=== PATIENT | female | born 1955 | race Caucasian/White ===

== ENCOUNTER 2019-01-10 10:21 | Observation (INO) | payer OTHER ==
[2019-01-10] MEDS ORDERED: Zofran 4 MG/2 ML VIAL IV ONE (11:02)
[2019-01-10] MEDS ORDERED: Sodium Chloride 0.9% 1000 ML 1,000 ML IV STA (11:02)
[2019-01-10] MEDS ORDERED: APRESOLINE 20 MG/ML INJ IV ONE (11:07)
[2019-01-10] MEDS ORDERED: Zofran 4 MG/2 ML VIAL ONE (11:28)
[2019-01-10] MEDS ORDERED: Sodium Chloride 0.9% 1000 ML 1,000 ML ONE (11:28)
[2019-01-10] MEDS ORDERED: APRESOLINE 20 MG/ML INJ ONE (11:28)
[2019-01-10 11:49] LABS: BASOPHIL % 0.4 % (0.0-0.4); Basophil (Absolute #) 0.03 (0-0.4); Eosinophil % 0.6 % (0.00-5.0); Eosinophil (Absolute #) 0.05 (0-0.5); Granulocyte Absolute (ANC) 7.22 (1.4-6.9); Granulocytes % 87.3 % (36.0-66.0); Hematocrit 40.3 % (35-47); Hemoglobin 13.8 gm/dl (12.0-16.0); Lymphocyte (Absolute #) 0.66 (1.0-4.6); Mean Cell Volume 84.3 fl (78-100); Mean Corpuscular Hemoglobin 28.9 pg (26-32); Mean Corpuscular Hgb Concent. 34.2 g/dl (32-36); Mean Platelet Volume 11.4 fl (6-9.5); Monocyte (Absolute #) 0.31 (0.0-1.3); Monocytes % 3.7 % (0.0-12.0); Platelet Count 176 K/mm3 (150-450); Red Blood Count 4.78 M/mm3 (4.1-5.4); White Blood Count 8.3 K/mm3 (4.0-10.5)
[2019-01-10 11:53] LABS: Appearance CLEAR (CLEAR); Bilirubin NEGATIVE (NEGATIVE); Blood SMALL Ery/ul (0-5); Glucose >=500 mg/dL (NEGATIVE); Ketones SMALL (NEGATIVE); Leukocyte Esterase NEGATIVE (NEGATIVE); Nitrite NEGATIVE (NEGATIVE); Protein,Urine Dip 100 (Negative); RBC 0-2 /HPF (0-2); Specific Gravity 1.014 (1.005-1.025); Urobilinogen 4 mg/dL (0-1); WBC 0-2 /HPF (0-5)
[2019-01-10 12:00] LABS: ALBUMIN 4.3 g/dL (3.5-5.0); ALKALINE PHOSPHATASE 91 U/L (38-126); ANION GAP 16.2 MEQ/L (5-15); BLOOD UREA NITROGEN 14 mg/dL (7-17); CHLORIDE 104 mmol/L (98-107); Calcium 10.2 mg/dL (8.4-10.2); Carbon Dioxide 22 mmol/L (22-30); Creatinine 1 0.47 mg/dL (0.52-1.04); Glucose 235 mg/dL (74-106); LIPASE 148 U/L (23-300); SGOT/AST 26 U/L (14-36); SGPT/ALT 29 U/L (0-35); SODIUM 138 mmol/L (137-145); Total Protein 7.2 g/dL (6.3-8.2)
[2019-01-10] MEDS: Cozaar 50 MG PO ONE ×2 (14:04→14:05)
--- NOTE | 2019-01-10 14:20 | ERPHSYRPT ---
- History of Present Illness Source: patient Exam Limitations: no limitations Patient Subjective Stated Complaint: woke up feeling nauseas and has vomited 3 times today, feels weak and not well Triage Nursing Assessment: bowel sounds heard in all 4 quadrants, hypertensive, pale, dry, no edema, pulses good, pain in head and left neck Physician History: Pt is a 63 y/o female that presented to the ED secondary to three episodes of vomiting. Pt denies F/C/S. No abdominal pain or diarrhea. Pt denies SOB or cough. Pt states, she takes her BP meds as ordered. Timing/Duration: today Activities at Onset: none Severity of Pain-Max: none Severity of Pain-Current: none Modifying Factors: Improves With: nothing Nitro Today/Relief: no nitro taken today Aspirin Treatment Today: no aspirin today Associated Symptoms: nausea, vomiting Allergies/Adverse Reactions: hydromorphone HCl [From Dilaudid] Allergy (Severe, Verified 01/10/19 10:47) CAN'T BREATHE Home Medications: Metformin HCl 500 mg [Glucophage 500 MG] 500 mg PO BID 03/04/12 [History] Aspirin EC 81 mg [Ecotrin 81 mg] 81 mg PO DAILY 08/24/13 [History] Enalapril Maleate 10 mg [Vasotec 10 MG] 10 mg PO DAILY 03/10/16 [History] Verapamil HCl [Verapamil ER] 240 mg PO DAILY 01/10/19 [History] Hx Tetanus, Diphtheria Vaccination/Date Given: Yes Hx Influenza Vaccination/Date Given: Yes Hx Pneumococcal Vaccination/Date Given: Yes - Review of Systems Constitutional: Lethargy, No Fever, No Chills Eyes: No Symptoms Ears, Nose, & Throat: No Symptoms Respiratory: No Cough, No Dyspnea Cardiac: No Chest Pain, No Edema, No Syncope Abdominal/Gastrointestinal: Nausea, Vomiting, No Abdominal Pain, No Diarrhea Musculoskeletal: No Back Pain, No Neck Pain Neurological: No Dizziness, No Focal Weakness, No Sensory Changes - Past Medical History Pertinent Past Medical History: Yes Neurological History: Seizures Cardiac History: Hypertension Respiratory History: Other Endocrine Medical History: Diabetes Type II Musculoskeletal History: Degenerative Disk Disease, Osteoarthritis GI Medical History: GERD History: No Pertinent History Psycho-Social History: No Pertinent History Female Reproductive Disorders: No Pertinent History Other Medical History: decreased o2 sat during night time, pt on 3l o2 per nc at night - Past Surgical History Past Surgical History: Yes Neuro Surgical History: No Pertinent History Cardiac: No Pertinent History Respiratory: No Pertinent History Gastrointestinal: Cholecystectomy Genitourinary: No Pertinent History Musculoskeletal: Orthopedic Surgery Female Surgical History: Section, Tubal Ligation Other Surgical History: r rotary cuff surgery - Social History Smoking Status: Former smoker How long have you smoked: 25 years Exposure to second hand smoke: No Drug Use: none Patient Lives Alone: No Significant Family History: diabetes, hypertension - Female History Hx Now: No - Nursing Vital Signs Nursing Vital Signs: Initial Vital Signs Pulse Rate 76 01/10/19 10:31 Blood Pressure 197/147 01/10/19 10:31 O2 Sat by Pulse Oximetry 96 01/10/19 10:31 Pain Scale Pain Intensity 5 - Physical Exam General Appearance: no apparent distress, alert Eye Exam: PERRL/EOMI, eyes nml inspection Ears, Nose, Throat Exam: normal ENT inspection, moist mucous membranes Neck Exam: normal inspection, non-tender, supple Respiratory Exam: normal breath sounds, lungs clear, No respiratory distress Cardiovascular Exam: regular rate/rhythm, normal heart sounds, No edema Gastrointestinal/Abdomen Exam: soft, No tenderness, No mass Back Exam: normal inspection, No CVA tenderness, No vertebral tenderness Extremity Exam: normal inspection, normal range of motion Neurologic Exam: alert, oriented x 3, cooperative, normal mood/affect, nml cerebellar function, sensation nml, No motor deficits SpO2: 97 - Course Nursing assessment & vital signs reviewed: Yes EKG Interpreted by Me: RATE (76bpm), Sinus Rhythm, Right Bundle Branch Block Ordered Tests: Active Orders 24 hr Category Date Time Status CBC W DIFF Stat Lab 01/10/19 11:40 Completed CMP Stat Lab 01/10/19 11:40 Completed CULTURE,URINE Stat Lab 01/10/19 11:40 Received LIPASE Stat Lab 01/10/19 11:40 Completed TROPONIN Q3H Lab 01/10/19 11:40 Completed TROPONIN Q3H Lab 01/10/19 14:15 Ordered TROPONIN Q3H Lab 01/10/19 17:15 Ordered TROPONIN Q3H Lab 01/10/19 20:15 Ordered TROPONIN Q3H Lab 01/10/19 23:15 Ordered UA W/RFX UR CULTURE Stat Lab 01/10/19 11:40 Completed Medication Summary Discontinued Medications Generic Name Dose Route Start Last Admin Trade Name Poornima PRN Reason Stop Dose Admin Hydralazine HCl 20 mg 01/10/19 11:07 01/10/19 11:32 Apresoline 20 Mg/Ml Inj IV 01/10/19 11:08 20 mg STAT ONE Administration Hydralazine HCl Confirm 01/10/19 11:28 Apresoline 20 Mg/Ml Inj Administered 01/10/19 11:29 Dose 20 mg .ROUTE .STK-MED ONE Sodium Chloride 1,000 mls @ 999 mls/hr 01/10/19 11:02 01/10/19 12:32 Sodium Chloride 0.9% 1000 Ml IV 01/10/19 12:02 Infused .Q1H1M STA Infusion Sodium Chloride Confirm 01/10/19 11:28 Sodium Chloride 0.9% 1000 Ml Administered 01/10/19 11:29 Dose 1,000 mls @ ud .ROUTE .STK-MED ONE Losartan Potassium 100 mg 01/10/19 10:00 01/10/19 14:05 Cozaar 50 Mg PO 01/10/19 10:01 100 mg NOW ONE Administration Ondansetron HCl 4 mg 01/10/19 11:02 01/10/19 11:32 Zofran 4 Mg/2 Ml Vial IV 01/10/19 11:03 4 mg STAT ONE Administration Ondansetron HCl Confirm 01/10/19 11:28 Zofran 4 Mg/2 Ml Vial Administered 01/10/19 11:29 Dose 4 mg .ROUTE .STK-MED ONE Lab/Rad Data: Laboratory Result Diagrams 01/10/19 11:40 01/10/19 11:40 Laboratory Results 01/10/19 01/10/19 01/10/19 Range/Units 11:40 11:40 11:40 WBC (4.0-10.5) K/mm3 RBC (4.1-5.4) M/mm3 Hgb (12.0-16.0) gm/dl Hct (35-47) % MCV (78-100) fl MCH (26-32) pg MCHC (32-36) g/dl RDW (11.5-14.0) % Plt Count (150-450) K/mm3 MPV (6-9.5) fl Gran % (36.0-66.0) % Eos # (Auto) (0-0.5) Absolute Lymphs (auto) (1.0-4.6) Absolute Monos (auto) (0.0-1.3) Lymphocytes % (24.0-44.0) % Monocytes % (0.0-12.0) % Eosinophils % (0.00-5.0) % Basophils % (0.0-0.4) % Absolute Granulocytes (1.4-6.9) Basophils # (0-0.4) Sodium 138 (137-145) mmol/L Potassium 4.0 (3.5-5.1) mmol/L Chloride 104 (98-107) mmol/L Carbon Dioxide 22 (22-30) mmol/L Anion Gap 16.2 H (5-15) MEQ/L BUN 14 (7-17) mg/dL Creatinine 0.47 L (0.52-1.04) mg/dL Estimated GFR > 60.0 ML/MIN Glucose 235 H (74-106) mg/dL Calcium 10.2 (8.4-10.2) mg/dL Total Bilirubin 0.70 (0.2-1.3) mg/dL AST 26 (14-36) U/L ALT 29 (0-35) U/L Alkaline Phosphatase 91 (38-126) U/L Troponin I < 0.012 (0.000-0.034) ng/mL Serum Total Protein 7.2 (6.3-8.2) g/dL Albumin 4.3 (3.5-5.0) g/dL Lipase 148 (23-300) U/L Urine Color YELLOW (YELLOW) Urine Appearance CLEAR (CLEAR) Urine pH 8.0 (5-6) Ur Specific [place] 1.014 (1.005-1.025) Urine Protein 100 (Negative) Urine Ketones SMALL (NEGATIVE) Urine Blood SMALL (0-5) Nir/ul Urine Nitrite NEGATIVE (NEGATIVE) Urine Bilirubin NEGATIVE (NEGATIVE) Urine Urobilinogen 4 (0-1) mg/dL Ur Leukocyte Esterase NEGATIVE (NEGATIVE) Urine WBC (Auto) 0-2 (0-5) /HPF Urine RBC (Auto) 0-2 (0-2) /HPF U Epithel Cells (Auto) NONE (FEW) /HPF Urine Bacteria (Auto) NONE (NEGATIVE) /HPF Urine Culture Reflexed YES (NO) Urine Glucose >=500 (NEGATIVE) mg/dL 01/10/19 Range/Units 11:40 WBC 8.3 (4.0-10.5) K/mm3 RBC 4.78 (4.1-5.4) M/mm3 Hgb 13.8 (12.0-16.0) gm/dl Hct 40.3 (35-47) % MCV 84.3 (78-100) fl MCH 28.9 (26-32) pg MCHC 34.2 (32-36) g/dl RDW 13.0 (11.5-14.0) % Plt Count 176 (150-450) K/mm3 MPV 11.4 H (6-9.5) fl Gran % 87.3 H (36.0-66.0) % Eos # (Auto) 0.05 (0-0.5) Absolute Lymphs (auto) 0.66 L (1.0-4.6) Absolute Monos (auto) 0.31 (0.0-1.3) Lymphocytes % 8.0 L (24.0-44.0) % Monocytes % 3.7 (0.0-12.0) % Eosinophils % 0.6 (0.00-5.0) % Basophils % 0.4 (0.0-0.4) % Absolute Granulocytes 7.22 H (1.4-6.9) Basophils # 0.03 (0-0.4) Sodium (137-145) mmol/L Potassium (3.5-5.1) mmol/L Chloride (98-107) mmol/L Carbon Dioxide (22-30) mmol/L Anion Gap (5-15) MEQ/L BUN (7-17) mg/dL Creatinine (0.52-1.04) mg/dL Estimated GFR ML/MIN Glucose (74-106) mg/dL Calcium (8.4-10.2) mg/dL Total Bilirubin (0.2-1.3) mg/dL AST (14-36) U/L ALT (0-35) U/L Alkaline Phosphatase (38-126) U/L Troponin I (0.000-0.034) ng/mL Serum Total Protein (6.3-8.2) g/dL Albumin (3.5-5.0) g/dL Lipase (23-300) U/L Urine Color (YELLOW) Urine Appearance (CLEAR) Urine pH (5-6) Ur Specific [place] (1.005-1.025) Urine Protein (Negative) Urine Ketones (NEGATIVE) Urine Blood (0-5) Nir/ul Urine Nitrite (NEGATIVE) Urine Bilirubin (NEGATIVE) Urine Urobilinogen (0-1) mg/dL Ur Leukocyte Esterase (NEGATIVE) Urine WBC (Auto) (0-5) /HPF Urine RBC (Auto) (0-2) /HPF U Epithel Cells (Auto) (FEW) /HPF Urine Bacteria (Auto) (NEGATIVE) /HPF Urine Culture Reflexed (NO) Urine Glucose (NEGATIVE) mg/dL - Progress Progress: improved Air Movement: good Progress Note: 01/10/19 14:19 Pt had lab work that showed no elevated WBCs, normal CMP, besides elevated BG, in mid 200s. Pt had elevated SBP of 200s, and that improved with Hydraklazine 20mg. She did get Losartan 100mg PO. Her PCP Dr Pedro, agreed to accept her as obs for elevated BP. Discussed with : Socorro Will see patient in: hospital (observation) - Departure Departure Disposition: Observation Clinical Impression: Hypertensive crisis Condition: Stable Critical Care Time: No Referrals: KYLEE WALLACE MD [Primary Care Provider] -
[2019-01-10] MEDS ORDERED: TYLENOL 325 MG PO PRN (14:21)
[2019-01-10] MEDS ORDERED: Zofran 4 MG/2 ML VIAL IV PRN (14:21)
[2019-01-10] MEDS: Glucophage 500 MG PO SCH (16:53)
[2019-01-10] MEDS: Keppra 250 MG PO SCH (16:54)
[2019-01-10] MEDS: KEPPRA 500 MG PO SCH (16:54)
[2019-01-10] MEDS ORDERED: MOTRIN 400 MG PO PRN (18:20)
[2019-01-10] MEDS: NovoLOG Insulin SQ PRN (21:58)
[2019-01-10] MEDS ORDERED: NON-FORMULARY ITEM (Levetiracetam [Keppra] 750 MG) PO SCH (22:00)
[2019-01-11 06:05] LABS: BASOPHIL % 0.5 % (0.0-0.4); Basophil (Absolute #) 0.04 (0-0.4); Eosinophil % 0.9 % (0.00-5.0); Eosinophil (Absolute #) 0.08 (0-0.5); Granulocyte Absolute (ANC) 6.06 (1.4-6.9); Granulocytes % 71.7 % (36.0-66.0); Hematocrit 41.4 % (35-47); Hemoglobin 13.7 gm/dl (12.0-16.0); Lymphocyte (Absolute #) 1.46 (1.0-4.6); Lymphocytes % 17.3 % (24.0-44.0); Mean Cell Volume 85.9 fl (78-100); Mean Corpuscular Hemoglobin 28.4 pg (26-32); Mean Corpuscular Hgb Concent. 33.1 g/dl (32-36); Mean Platelet Volume 11.4 fl (6-9.5); Monocyte (Absolute #) 0.81 (0.0-1.3); Monocytes % 9.6 % (0.0-12.0); Platelet Count 200 K/mm3 (150-450); Red Blood Count 4.82 M/mm3 (4.1-5.4); Red Cell Distribution Width 13.3 % (11.5-14.0); White Blood Count 8.5 K/mm3 (4.0-10.5)
[2019-01-11 06:19] LABS: ALBUMIN 3.8 g/dL (3.5-5.0); ALKALINE PHOSPHATASE 70 U/L (38-126); ANION GAP 14.5 MEQ/L (5-15); BLOOD UREA NITROGEN 14 mg/dL (7-17); CHLORIDE 103 mmol/L (98-107); Calcium 10.6 mg/dL (8.4-10.2); Carbon Dioxide 26 mmol/L (22-30); Creatinine 1 0.56 mg/dL (0.52-1.04); Glucose 176 mg/dL (74-106); Potassium 3.8 mmol/L (3.5-5.1); SGOT/AST 22 U/L (14-36); SGPT/ALT 24 U/L (0-35); SODIUM 140 mmol/L (137-145); Total Protein 6.6 g/dL (6.3-8.2)
[2019-01-11] MEDS: KEPPRA 500 MG PO SCH ×2 (08:07→17:09)
[2019-01-11] MEDS: Keppra 250 MG PO SCH ×2 (08:07→17:09)
[2019-01-11] MEDS: Glucophage 500 MG PO SCH ×2 (08:07→17:09)
[2019-01-11] MEDS: ECOTRIN 81 MG PO SCH (08:20)
[2019-01-11] MEDS: ISOPTIN S.R. 240 MG PO SCH (08:20)
[2019-01-11] MEDS ORDERED: Vasotec 10 MG PO SCH (10:00)
--- NOTE | 2019-01-11 11:26 | PCM.HP ---
History of Present Illness - Chief Complaint Chief Complaint: hypertemsion crisis History of Present Illness: is a 63 year old female pt of DR. Quintanilla with PMhx HTN and DM II who was admitted through the ER with hypertensive urgency yesterday. Her chief complaints, she says, were vomiting, being pale and weak. She was given hydralazine x 1 in the ER. She has had BP in the 180s-200s systolic here with the automatic cuff, but recheck this morning on manual cuff was 150/87. She states she's been taking her medications at home. In the ER, her EKG was NSR, rate in the 70s, some nonspecific ST changes in aVR but otherwise unchanged from previous EKG. Troponins neg x 5. Her WBC 8.5 and hgb 13.5. Potassium 3.8 and BUN 14, Cr 0.56. BS 176. Some time after she left the ER, she started feeling much better. She is feeling good now. No vomiting here. Got up and went to the bathroom on her own and did well. Tolerated biscuits and gravy this morning. - Review of Systems Constitutional: Fatigue, No Fever Cardiac: Edema (chronic LE edema) Abdominal/Gastrointestinal: Vomiting, Diarrhea (Intermittent; no recent increase ) Medications & Allergies Home Medications: Home Medication List Metformin HCl 500 mg [Glucophage 500 MG] 500 mg PO BID 03/04/12 [History Confirmed 01/10/19] Aspirin EC 81 mg [Ecotrin 81 mg] 81 mg PO DAILY 08/24/13 [History Confirmed 01/10/19] Levetiracetam [Keppra] 750 mg PO BID #60 tablet 08/29/13 [Rx Confirmed 01/10/19] Enalapril Maleate 10 mg [Vasotec 10 MG] 10 mg PO DAILY 03/10/16 [History Confirmed 01/10/19] Pravastatin Sodium 20 mg PO HS 01/10/19 [History Confirmed 01/10/19] Verapamil HCl [Verapamil ER] 240 mg PO DAILY 01/10/19 [History Confirmed ] Allergies/Adverse Reactions: Allergies Allergy/AdvReac Type Severity Reaction Status Date / Time hydromorphone HCl Allergy Severe CAN'T Verified 01/10/19 10:47 [From Dilaudid] BREATHE - Past Medical History Past Medical History: Yes Neurological History: Seizures ENT History: No Pertinent History Cardiac History: Hypertension Respiratory History: Sleep Apnea, Other Endocrine Medical History: Diabetes Type II Musculoskelatal History: Degenerative Disk Disease, Osteoarthritis GI Medical History: GERD History: No Pertinent History Pyscho-Social History: No Pertinent History Reproductive Disorders: No Pertinent History Comment: decreased o2 sat during night time,cpap at night - Female History Are you now?: No - Past Surgical History Past Surgical History: Yes Neuro Surgical History: No Pertinent History Cardiac History: No Pertinent History Respiratory Surgery: No Pertinent History GI Surgical History: Cholecystectomy Genitourinary Surgical Hx: No Pertinent History Musculskeletal Surgical Hx: Orthopedic Surgery Female Surgical History: Section, Tubal Ligation Other Surgical History: r rotary cuff surgery - Social History Smoking Status: Former smoker How long have you smoked: 25 years Exposure to second hand smoke: No Alcohol: None Drug Use: none Significant Family History: diabetes, hypertension - Physical Exam Vital Signs: Vital Signs - 24 hr Temp Pulse Resp BP Pulse Ox 01/11/19 08:34 150/87 01/11/19 07:24 97.8 F 80 20 200/94 97 01/11/19 03:35 98.6 F 82 18 180/95 97 01/10/19 23:49 98.5 F 86 18 160/95 93 L 01/10/19 19:54 98.8 F 89 18 182/99 94 L 01/10/19 14:44 98.7 F 94 H 20 197/98 94 L 01/10/19 14:41 98.7 F 94 H 20 197/98 94 L 01/10/19 14:21 97 01/10/19 14:21 98.7 F 94 H 20 197/98 94 L 01/10/19 13:52 91 H 18 161/108 97 01/10/19 13:42 99.3 F 91 H 18 161/108 97 01/10/19 12:32 88 18 153/101 01/10/19 12:19 87 136/112 01/10/19 11:32 79 18 202/107 General Appearance: no apparent distress, obese Neurologic Exam: alert, cooperative Eye Exam: eyes nml inspection Ears, Nose, Throat Exam: moist mucous membranes Neck Exam: normal inspection, non-tender, No lymphadenopathy Respiratory Exam: normal breath sounds, lungs clear, No crackles/rales, No rhonchi, No wheezing Cardiovascular Exam: regular rate/rhythm, normal heart sounds, No murmur Gastrointestinal/Abdomen Exam: soft, normal bowel sounds, No tenderness, No distention, No mass, No guarding, No rebound Back Exam: normal inspection, No rash Extremity Exam: swelling (trace pretibial edema bilat) Skin Exam: normal color, warm, dry, No rash Results - Labs Lab/Micro Results: Accuchecks Date 01/11/19 Date 01/10/19 Date 01/10/19 Time 07:30 Time 21:00 Time 16:30 Accucheck Value: 184 Accucheck Value: 174 Accucheck Value: 186 Lab Results-Last 24 Hours 01/10/19 01/10/19 01/10/19 Range/Units 05:28 11:40 11:40 WBC 8.3 (4.0-10.5) K/mm3 RBC 4.78 (4.1-5.4) M/mm3 Hgb 13.8 (12.0-16.0) gm/dl Hct 40.3 (35-47) % MCV 84.3 (78-100) fl MCH 28.9 (26-32) pg MCHC 34.2 (32-36) g/dl RDW 13.0 (11.5-14.0) % Plt Count 176 (150-450) K/mm3 MPV 11.4 H (6-9.5) fl Gran % 87.3 H (36.0-66.0) % Eos # (Auto) 0.05 (0-0.5) Absolute Lymphs (auto) 0.66 L (1.0-4.6) Absolute Monos (auto) 0.31 (0.0-1.3) Lymphocytes % 8.0 L (24.0-44.0) % Monocytes % 3.7 (0.0-12.0) % Eosinophils % 0.6 (0.00-5.0) % Basophils % 0.4 (0.0-0.4) % Absolute Granulocytes 7.22 H (1.4-6.9) Basophils # 0.03 (0-0.4) Sodium 138 (137-145) mmol/L Potassium 4.0 (3.5-5.1) mmol/L Chloride 104 (98-107) mmol/L Carbon Dioxide 22 (22-30) mmol/L Anion Gap 16.2 H (5-15) MEQ/L BUN 14 (7-17) mg/dL Creatinine 0.47 L (0.52-1.04) mg/dL Estimated GFR > 60.0 ML/MIN Glucose 235 H (74-106) mg/dL Hemoglobin A1c (4.5-6.0) % Calcium 10.2 (8.4-10.2) mg/dL Total Bilirubin 0.70 (0.2-1.3) mg/dL AST 26 (14-36) U/L ALT 29 (0-35) U/L Alkaline Phosphatase 91 (38-126) U/L Troponin I < 0.012 (0.000-0.034) ng/mL Serum Total Protein 7.2 (6.3-8.2) g/dL Albumin 4.3 (3.5-5.0) g/dL Lipase 148 (23-300) U/L Urine Color (YELLOW) Urine Appearance (CLEAR) Urine pH (5-6) Ur Specific [place] (1.005-1.025) Urine Protein (Negative) Urine Ketones (NEGATIVE) Urine Blood (0-5) Nir/ul Urine Nitrite (NEGATIVE) Urine Bilirubin (NEGATIVE) Urine Urobilinogen (0-1) mg/dL Ur Leukocyte Esterase (NEGATIVE) Urine WBC (Auto) (0-5) /HPF Urine RBC (Auto) (0-2) /HPF U Epithel Cells (Auto) (FEW) /HPF Urine Bacteria (Auto) (NEGATIVE) /HPF Urine Culture Reflexed (NO) Urine Glucose (NEGATIVE) mg/dL 01/10/19 01/10/19 01/10/19 Range/Units 11:40 11:40 15:07 WBC (4.0-10.5) K/mm3 RBC (4.1-5.4) M/mm3 Hgb (12.0-16.0) gm/dl Hct (35-47) % MCV (78-100) fl MCH (26-32) pg MCHC (32-36) g/dl RDW (11.5-14.0) % Plt Count (150-450) K/mm3 MPV (6-9.5) fl Gran % (36.0-66.0) % Eos # (Auto) (0-0.5) Absolute Lymphs (auto) (1.0-4.6) Absolute Monos (auto) (0.0-1.3) Lymphocytes % (24.0-44.0) % Monocytes % (0.0-12.0) % Eosinophils % (0.00-5.0) % Basophils % (0.0-0.4) % Absolute Granulocytes (1.4-6.9) Basophils # (0-0.4) Sodium (137-145) mmol/L Potassium (3.5-5.1) mmol/L Chloride (98-107) mmol/L Carbon Dioxide (22-30) mmol/L Anion Gap (5-15) MEQ/L BUN (7-17) mg/dL Creatinine (0.52-1.04) mg/dL Estimated GFR ML/MIN Glucose (74-106) mg/dL Hemoglobin A1c (4.5-6.0) % Calcium (8.4-10.2) mg/dL Total Bilirubin (0.2-1.3) mg/dL AST (14-36) U/L ALT (0-35) U/L Alkaline Phosphatase (38-126) U/L Troponin I < 0.012 < 0.012 (0.000-0.034) ng/mL Serum Total Protein (6.3-8.2) g/dL Albumin (3.5-5.0) g/dL Lipase (23-300) U/L Urine Color YELLOW (YELLOW) Urine Appearance CLEAR (CLEAR) Urine pH 8.0 (5-6) Ur Specific [place] 1.014 (1.005-1.025) Urine Protein 100 (Negative) Urine Ketones SMALL (NEGATIVE) Urine Blood SMALL (0-5) Nir/ul Urine Nitrite NEGATIVE (NEGATIVE) Urine Bilirubin NEGATIVE (NEGATIVE) Urine Urobilinogen 4 (0-1) mg/dL Ur Leukocyte Esterase NEGATIVE (NEGATIVE) Urine WBC (Auto) 0-2 (0-5) /HPF Urine RBC (Auto) 0-2 (0-2) /HPF U Epithel Cells (Auto) NONE (FEW) /HPF Urine Bacteria (Auto) NONE (NEGATIVE) /HPF Urine Culture Reflexed YES (NO) Urine Glucose >=500 (NEGATIVE) mg/dL 01/10/19 01/10/19 01/10/19 Range/Units 15:15 17:56 20:30 WBC (4.0-10.5) K/mm3 RBC (4.1-5.4) M/mm3 Hgb (12.0-16.0) gm/dl Hct (35-47) % MCV (78-100) fl MCH (26-32) pg MCHC (32-36) g/dl RDW (11.5-14.0) % Plt Count (150-450) K/mm3 MPV (6-9.5) fl Gran % (36.0-66.0) % Eos # (Auto) (0-0.5) Absolute Lymphs (auto) (1.0-4.6) Absolute Monos (auto) (0.0-1.3) Lymphocytes % (24.0-44.0) % Monocytes % (0.0-12.0) % Eosinophils % (0.00-5.0) % Basophils % (0.0-0.4) % Absolute Granulocytes (1.4-6.9) Basophils # (0-0.4) Sodium (137-145) mmol/L Potassium (3.5-5.1) mmol/L Chloride (98-107) mmol/L Carbon Dioxide (22-30) mmol/L Anion Gap (5-15) MEQ/L BUN (7-17) mg/dL Creatinine (0.52-1.04) mg/dL Estimated GFR ML/MIN Glucose (74-106) mg/dL Hemoglobin A1c 6.93 H (4.5-6.0) % Calcium (8.4-10.2) mg/dL Total Bilirubin (0.2-1.3) mg/dL AST (14-36) U/L ALT (0-35) U/L Alkaline Phosphatase (38-126) U/L Troponin I < 0.012 < 0.012 (0.000-0.034) ng/mL Serum Total Protein (6.3-8.2) g/dL Albumin (3.5-5.0) g/dL Lipase (23-300) U/L Urine Color (YELLOW) Urine Appearance (CLEAR) Urine pH (5-6) Ur Specific [place] (1.005-1.025) Urine Protein (Negative) Urine Ketones (NEGATIVE) Urine Blood (0-5) Nir/ul Urine Nitrite (NEGATIVE) Urine Bilirubin (NEGATIVE) Urine Urobilinogen (0-1) mg/dL Ur Leukocyte Esterase (NEGATIVE) Urine WBC (Auto) (0-5) /HPF Urine RBC (Auto) (0-2) /HPF U Epithel Cells (Auto) (FEW) /HPF Urine Bacteria (Auto) (NEGATIVE) /HPF Urine Culture Reflexed (NO) Urine Glucose (NEGATIVE) mg/dL 01/11/19 01/11/19 Range/Units 05:00 05:00 WBC 8.5 (4.0-10.5) K/mm3 RBC 4.82 (4.1-5.4) M/mm3 Hgb 13.7 (12.0-16.0) gm/dl Hct 41.4 (35-47) % MCV 85.9 (78-100) fl MCH 28.4 (26-32) pg MCHC 33.1 (32-36) g/dl RDW 13.3 (11.5-14.0) % Plt Count 200 (150-450) K/mm3 MPV 11.4 H (6-9.5) fl Gran % 71.7 H (36.0-66.0) % Eos # (Auto) 0.08 (0-0.5) Absolute Lymphs (auto) 1.46 (1.0-4.6) Absolute Monos (auto) 0.81 (0.0-1.3) Lymphocytes % 17.3 L (24.0-44.0) % Monocytes % 9.6 (0.0-12.0) % Eosinophils % 0.9 (0.00-5.0) % Basophils % 0.5 (0.0-0.4) % Absolute Granulocytes 6.06 (1.4-6.9) Basophils # 0.04 (0-0.4) Sodium 140 (137-145) mmol/L Potassium 3.8 (3.5-5.1) mmol/L Chloride 103 (98-107) mmol/L Carbon Dioxide 26 (22-30) mmol/L Anion Gap 14.5 (5-15) MEQ/L BUN 14 (7-17) mg/dL Creatinine 0.56 (0.52-1.04) mg/dL Estimated GFR > 60.0 ML/MIN Glucose 176 H (74-106) mg/dL Hemoglobin A1c (4.5-6.0) % Calcium 10.6 H (8.4-10.2) mg/dL Total Bilirubin 0.70 (0.2-1.3) mg/dL AST 22 (14-36) U/L ALT 24 (0-35) U/L Alkaline Phosphatase 70 (38-126) U/L Troponin I (0.000-0.034) ng/mL Serum Total Protein 6.6 (6.3-8.2) g/dL Albumin 3.8 (3.5-5.0) g/dL Lipase (23-300) U/L Urine Color (YELLOW) Urine Appearance (CLEAR) Urine pH (5-6) Ur Specific [place] (1.005-1.025) Urine Protein (Negative) Urine Ketones (NEGATIVE) Urine Blood (0-5) Nir/ul Urine Nitrite (NEGATIVE) Urine Bilirubin (NEGATIVE) Urine Urobilinogen (0-1) mg/dL Ur Leukocyte Esterase (NEGATIVE) Urine WBC (Auto) (0-5) /HPF Urine RBC (Auto) (0-2) /HPF U Epithel Cells (Auto) (FEW) /HPF Urine Bacteria (Auto) (NEGATIVE) /HPF Urine Culture Reflexed (NO) Urine Glucose (NEGATIVE) mg/dL Accuchecks Date 01/11/19 Date 01/10/19 Date 01/10/19 Time 07:30 Time 21:00 Time 16:30 Accucheck Value: 184 Accucheck Value: 174 Accucheck Value: 186 - Other Procedures and Tests Respiratory Therapy 01/10/19 18:14 BiPap/CPAP [facility] Assessment/Plan (1) Hypertensive crisis Current Visit: Yes Status: Acute Assessment & Plan: Her elevated BP this morning could be in part due to the equipment - so all further BP will be taken manually. If they stay down below 170-180 systolic, may be able to d/c home today. If they remain elevated, will increase her enalapril to 20mg/d although it may take several days to a week for the full effectiveness of the dose change to be realized. Code(s): I16.9 - HYPERTENSIVE CRISIS, UNSPECIFIED (2) Diabetes mellitus Current Visit: Yes Status: Acute Qualifiers: Diabetes mellitus type: type 2 Diabetes mellitus half-way insulin use: without half-way use Diabetes mellitus complication status: without complication Qualified Code(s): E11.9 - Type 2 diabetes mellitus without complications Code(s): E11.9 - TYPE 2 DIABETES MELLITUS WITHOUT COMPLICATIONS (3) Vomiting Current Visit: No Status: Resolved Qualifiers: Vomiting type: unspecified Vomiting Intractability: non-intractable Nausea presence: unspecified Qualified Code(s): R11.10 - Vomiting, unspecified Code(s): R11.10 - VOMITING, UNSPECIFIED
[2019-01-11] MEDS: NovoLOG Insulin SQ PRN (11:47)
[2019-01-11] MEDS ORDERED: Vasotec 10 MG PO ONE (16:51)
[2019-01-12] MEDS: Keppra 250 MG PO SCH (08:10)
[2019-01-12] MEDS: Glucophage 500 MG PO SCH (08:10)
[2019-01-12] MEDS: NovoLOG Insulin SQ PRN ×2 (08:11→12:30)
[2019-01-12] MEDS: KEPPRA 500 MG PO SCH (08:11)
[2019-01-12] MEDS ORDERED: Vasotec 10 MG PO SCH (10:00)
[2019-01-12] MEDS: ISOPTIN S.R. 240 MG PO SCH (10:32)
[2019-01-12] MEDS: ECOTRIN 81 MG PO SCH (10:32)
[2019-01-12 12:23] VITALS: BP 139/95; PULSE 96; O2SAT 98
--- NOTE | 2019-01-12 12:35 | PCM.DS ---
Discharge Summary Date of Admission: 01/10/19 14:35 Admitting Physician: KYLEE WALLACE Primary Care Provider: KYLEE WALLACE Allergies Allergies hydromorphone HCl [From Dilaudid] Allergy (Severe, Verified 01/10/19 10:47) CAN'T BREATHE Hospital Summary - Hospital Course Hospital Course: Pt is a 63 yo female pt of Dr. Wallace with HTN, DM and HIGINIO who came through ER for admission with comiting, weakness, and found to have hypertensive urgency. Troponins were negative x 5. Her chemistry and CBC were grossly nl. Her EKG had some nonspecific ST changes compared with her old EKG that I did discuss with the networks computer consultant principal research economist and he was not concerned. She started feeling well that evening with no more vomiting and tolerating po well. Her BP remained elevated the evening of admission so the next morning I increased her LINDA inhibitor. All her BP since 0700 yesterday have been < 180 systolic and she is feeling well. She will be discharged to home on the new dose and is to follow up with Dr. Wallace. - Vitals & Intake/Output Vital Signs: Vital Signs Temperature 97.8 F 01/12/19 12:22 Pulse Rate 96 H 01/12/19 12:22 Respiratory Rate 20 01/12/19 12:22 Blood Pressure 139/95 01/12/19 12:22 O2 Sat by Pulse Oximetry 98 01/12/19 12:22 Intake & Output: Intake & Output 01/10/19 01/11/19 01/12/19 01/13/19 11:59 11:59 11:59 11:59 Intake Total 600 2640 Output Total 700 800 Balance -100 1840 Weight 108.862 kg 53.637 kg - Lab Result Diagrams: 01/11/19 05:00 01/11/19 05:00 Lab Results-Last 24 Hrs: Accuchecks Date 01/11/19 Date 01/11/19 Time 21:30 Time 16:30 Accucheck Value: 144 Accucheck Value: 136 Micro Results-Entire Visit: Microbiology 01/10/19 11:40 Urine Culture - Final Clean Catch Midstream Escherichia Coli Accuchecks Date 01/11/19 Date 01/11/19 Time 21:30 Time 16:30 Accucheck Value: 144 Accucheck Value: 136 - Procedures and Test Procedures and Tests throughout Hospitalization: Therapy Orders & Screens 01/10/19 18:14 BiPap/CPAP QHS Comment: Diagnosis: hypertemsion crisis 01/11/19 07:49 EKG ROUTINE Comment: Diagnosis: hypertemsion crisis Discharge Exam General Appearance: no apparent distress, alert, obese Neurologic Exam: oriented x 3, cooperative Skin Exam: normal color, warm, dry, No rash Eye Exam: eyes nml inspection Ears, Nose, Throat Exam: moist mucous membranes Neck Exam: normal inspection Respiratory Exam: normal breath sounds, lungs clear, No crackles/rales, No rhonchi, No wheezing Cardiovascular Exam: regular rate/rhythm, normal heart sounds, No murmur Gastrointestinal/Abdomen Exam: soft, normal bowel sounds, No tenderness, No distention, No mass, No guarding, No rebound Extremity Exam: normal inspection, No pedal edema, No swelling Final Diagnosis/Problem List - Final Discharge Diagnosis/Problem (1) Hypertensive crisis Current Visit: Yes Status: Resolved Code(s): I16.9 - HYPERTENSIVE CRISIS, UNSPECIFIED (2) Diabetes mellitus Current Visit: Yes Status: Acute Assessment & Plan: Her metformin was held during her stay and her BS were controlled with novolog sliding scale. Code(s): E11.9 - TYPE 2 DIABETES MELLITUS WITHOUT COMPLICATIONS (3) Hypertension Current Visit: No Status: Acute Assessment & Plan: Increase enalapril from 10mg po daily to 20mg po daily. Code(s): I10 - ESSENTIAL (PRIMARY) HYPERTENSION - Discharge Disposition: Home, Self-Care Condition: Good Prescriptions: New Enalapril Maleate 10 mg [Vasotec 10 MG] 20 mg PO DAILY #30 tablet Continue Metformin HCl 500 mg [Glucophage 500 MG] 500 mg PO BID Aspirin EC 81 mg [Ecotrin 81 mg] 81 mg PO DAILY Levetiracetam [Keppra] 750 mg PO BID #60 tablet Verapamil HCl [Verapamil ER] 240 mg PO DAILY Pravastatin Sodium 20 mg PO HS Discontinued Enalapril Maleate 10 mg [Vasotec 10 MG] 10 mg PO DAILY Follow up with: KYLEE WALLACE MD [Primary Care Provider] - 1 Week
== END 2019-01-12 14:00 | disposition home or self-care (01) ==
LOC: ED 10:21 → MED SURG 14:35
PROVIDERS: ADMIT General Practice; ATTEND General Practice
DX: I16.0 Hypertensive urgency (principal); E11.9 Type 2 diabetes mellitus without complications; G47.33 Obstructive sleep apnea (adult) (pediatric); Z79.899 Other long term (current) drug therapy; R11.10 Vomiting, unspecified; R53.1 Weakness
CPT/HCPCS: 36415; 80053; 81001; 82962; 83036; 83690; 84484; 85025; 87077; 87086; 87186; 93005; 93268; 96360; 96374; 96375; 99285; G0378; J0360; J2405; A9270-GY

== ENCOUNTER 2019-07-18 21:21 | Emergency (ER) | payer OTHER ==
[2019-07-18 21:36] VITALS: BP 188/100; PULSE 93
--- NOTE | 2019-07-18 21:48 | ERPHSYRPT ---
- History of Present Illness Time Seen by Provider: 07/18/19 21:40 Source: patient Exam Limitations: no limitations Patient Subjective Stated Complaint: Patient states she just wants her Blood pressure and blood sugar checked as she has been moving today Triage Nursing Assessment: Patient ambulated into ER saying she would like to have her Blood pressure and blood sugar checked as she has been moving today. Second blood pressure reading 141/106 Physician History: Patient arrives with no acute complaints but found her blood pressure was high today and she wanted to check her blood sugar as she does not have a glucometer at home. Patient states she feels great, but was urged to come into the emergency department by her son for an evaluation. Timing/Duration: today Severity: mild Modifying Factors: Worsens With: movement Associated Symptoms: denies symptoms, No nausea, No vomiting, No abdominal pain , No shortness of breath, No heartburn, No diaphoresis, No cough, No chills, No chest pain, No fever, No headaches, No loss of appetite, No malaise, No rash, No syncope, No seizure, No weakness Allergies/Adverse Reactions: hydromorphone HCl [From Dilaudid] Allergy (Severe, Verified 07/18/19 21:35) CAN'T BREATHE Home Medications: Metformin HCl 500 mg [Glucophage 500 MG] 500 mg PO BID 03/04/12 [History] Aspirin EC 81 mg [Ecotrin 81 mg] 81 mg PO DAILY 08/24/13 [History] Pravastatin Sodium 20 mg PO HS 01/10/19 [History] Verapamil HCl [Verapamil ER] 240 mg PO DAILY 01/10/19 [History] Hx Tetanus, Diphtheria Vaccination/Date Given: Yes Hx Influenza Vaccination/Date Given: Yes Hx Pneumococcal Vaccination/Date Given: Yes Immunizations Up to Date: Yes - Review of Systems Constitutional: No Fever, No Chills, No Fatigue Eyes: No Eye Pain, No Vision Changes Ears, Nose, & Throat: No Mouth Pain, No Mouth Swelling, No Throat Pain, No Throat Swelling, No Hoarse, No Painful Swallowing Respiratory: No Cough, No Dyspnea, No Dyspnea on Exertion (GRIMM) Cardiac: No Chest Pain, No Edema, No Palpitations, No Syncope Abdominal/Gastrointestinal: No Abdominal Pain, No Nausea, No Vomiting, No Hematemesis, No Hematochezia, No Melena Genitourinary Symptoms: No Dysuria, No Frequency, No Hematuria, No Urgency, No Flank Pain Musculoskeletal: No Back Pain, No Neck Pain, No Joint Swelling Skin: No Pruritis, No Rash Neurological: No Dizziness, No Focal Weakness, No Headache, No Irritability, No Parasthesia, No Tremors Psychological: No Anxiety, No Emotional Lability Endocrine: No Polyuria, No Polydipsia, No Excessive Sweating Hematologic/Lymphatic: No Easy Bleeding, No Easy Bruising All Other Systems: Reviewed and Negative - Past Medical History Pertinent Past Medical History: Yes Neurological History: Seizures ENT History: No Pertinent History Cardiac History: Hypertension Respiratory History: Sleep Apnea, Other Endocrine Medical History: Diabetes Type II Musculoskeletal History: Degenerative Disk Disease, Osteoarthritis GI Medical History: GERD History: No Pertinent History Psycho-Social History: No Pertinent History Female Reproductive Disorders: No Pertinent History Other Medical History: decreased o2 sat during night time,cpap at night - Past Surgical History Past Surgical History: Yes Neuro Surgical History: No Pertinent History Cardiac: No Pertinent History Respiratory: No Pertinent History Gastrointestinal: Cholecystectomy Genitourinary: No Pertinent History Musculoskeletal: Orthopedic Surgery Female Surgical History: Section, Tubal Ligation Other Surgical History: r rotary cuff surgery - Social History Smoking Status: Former smoker How long have you smoked: 25 years Exposure to second hand smoke: No Drug Use: none Patient Lives Alone: No Significant Family History: diabetes, hypertension - Female History Hx Now: No - Nursing Vital Signs Nursing Vital Signs: Initial Vital Signs Temperature 97.3 F 07/18/19 21:27 Pulse Rate 93 H 07/18/19 21:27 Respiratory Rate 20 07/18/19 21:27 Blood Pressure 188/100 07/18/19 21:27 Pain Scale Pain Intensity 0 - Physical Exam General Appearance: no apparent distress, alert Eye Exam: PERRL/EOMI, eyes nml inspection, No scleral icterus, No pale conjunctivae, No photophobia Ears, Nose, Throat Exam: normal ENT inspection, TMs normal, pharynx normal, moist mucous membranes Neck Exam: normal inspection, non-tender, supple, full range of motion, No meningismus, No mass, No Brudzinski, No JVD, No lymphadenopathy, No midline tenderness Respiratory Exam: normal breath sounds, lungs clear, airway intact, No chest tenderness, No respiratory distress, No diminished breath sounds, No accessory muscle use, No prolonged expirations, No crackles/rales, No rhonchi, No wheezing , No stridor Cardiovascular Exam: regular rate/rhythm, normal heart sounds, normal peripheral pulses, capillary refill <2 sec Gastrointestinal/Abdomen Exam: soft, normal bowel sounds, No tenderness, No distention, No rebound Back Exam: normal inspection, No CVA tenderness, No vertebral tenderness, No rash Neurologic Exam: alert, oriented x 3, cooperative, 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 Keep a log of your blood pressure for your doctor.
== END 2019-07-18 21:54 | disposition home or self-care (01) ==
LOC: ED 21:21
DX: I10 Essential (primary) hypertension (principal); E11.65 Type 2 diabetes mellitus with hyperglycemia; Z79.4 Long term (current) use of insulin; Z79.899 Other long term (current) drug therapy
CPT/HCPCS: 99283

== ENCOUNTER 2024-01-12 19:41 | Emergency (ER) | payer MEDICAID, OTHER ==
--- NOTE | 2024-01-12 19:45 | ERPHSYRPT ---
- History of Present Illness Time Seen by Provider: 01/12/24 19:44 Source: patient, family, EMS Exam Limitations: no limitations Physician History: This is a 68-year-old morbidly obese white female patient of Dr. Wallace who presents to the emergency department with a history of fall after tripping over her neighbors dog. Patient did not lose consciousness but she did hit her head and her left shoulder and upper arm. Patient was brought into the emergency department by the paramedics. Patient refused an IV as well as a cervical collar. She also refused to be placed on a backboard. She states she does not recall the last time she had a tetanus injection. Her primary complaints are pain in the left shoulder and left upper arm. She also has a skin laceration superior and lateral to her left eye. Patient has a history of hyperlipidemia, hypertension, seizure disorder and is diabetic Occurred: just prior to arrival Reason for Fall: tripped (Over neighbors dog), fell from standing pos Injuries/Pain Location: head, upper extremity (Left shoulder and left upper arm ) Loss of Consciousness: no loss of consciousness Quality: aching Severity of Pain-Max: moderate Severity of Pain-Current: moderate Modifying Factors: Improves With: movement Associated Symptoms (Fall): denies symptoms Allergies/Adverse Reactions: hydromorphone HCl [From Dilaudid] Allergy (Severe, Verified 01/12/24 19:44) CAN'T BREATHE Home Medications: Metformin HCl 500 mg [Glucophage 500 MG] 500 mg PO BID 03/04/12 [History] Pravastatin Sodium 20 mg PO HS 01/10/19 [History] Verapamil HCl [Verapamil ER] 240 mg PO DAILY 01/10/19 [History] Aspirin 81 gm Chew [Baby Aspirin 81 mg Chew] 81 mg PO DAILY 01/12/24 [History] Hx Tetanus, Diphtheria Vaccination/Date Given: Yes Hx Influenza Vaccination/Date Given: Yes Hx Pneumococcal Vaccination/Date Given: Yes Travel Risk - International Travel Have you traveled outside of the country in past 3 weeks: No - Emerging Infectious Disease Are you exhibiting symptoms associated with any current EIDs: No - Review of Systems Constitutional: No Symptoms Eyes: No Symptoms Ears, Nose, & Throat: No Symptoms Respiratory: No Symptoms Cardiac: No Symptoms Abdominal/Gastrointestinal: No Symptoms Genitourinary Symptoms: No Symptoms Musculoskeletal: Fall, Injury (Left shoulder and left upper arm) Skin: Other (Skin laceration above and lateral to the left eye) Neurological: No Symptoms Psychological: No Symptoms Endocrine: No Symptoms Hematologic/Lymphatic: No Symptoms Immunological/Allergic: No Symptoms All Other Systems: Reviewed and Negative - Past Medical History Pertinent Past Medical History: Yes Neurological History: Seizures ENT History: No Pertinent History Cardiac History: Hypertension Respiratory History: Sleep Apnea, Other Endocrine Medical History: Diabetes Type II Musculoskeletal History: Degenerative Disk Disease, Osteoarthritis GI Medical History: GERD History: No Pertinent History Psycho-Social History: No Pertinent History Female Reproductive Disorders: No Pertinent History Other Medical History: decreased o2 sat during night time,cpap at night - Past Surgical History Past Surgical History: Yes Neuro Surgical History: No Pertinent History Cardiac: No Pertinent History Respiratory: No Pertinent History Gastrointestinal: Cholecystectomy Genitourinary: No Pertinent History Musculoskeletal: Orthopedic Surgery Female Surgical History: Section, Tubal Ligation Other Surgical History: r rotary cuff surgery Significant Family History: diabetes, hypertension - Social History Smoking Status: Former smoker How long have you smoked: 25 years Exposure to second hand smoke: No Drug Use: none Patient Lives Alone: No - Nursing Vital Signs Nursing Vital Signs: Initial Vital Signs Temperature 97.2 F 01/12/24 19:45 Pulse Rate 46 L 01/12/24 19:45 Respiratory Rate 18 01/12/24 19:45 Blood Pressure 210/120 01/12/24 19:45 O2 Sat by Pulse Oximetry 98 01/12/24 19:45 Pain Scale Pain Intensity 10 - Iris Coma Score Best Eye Response (Iris): (4) open spontaneously Best Verbal Response ([place]): (5) oriented Best Motor Response ([place]ris): (6) obeys commands Iris Total: 15 - Physical Exam General Appearance: no apparent distress, alert, anxiety, obese Head Injury: lacerations (3 separate, close in proximity skin laceration superior to and lateral to the left eye), tenderness Eye Exam: PERRL/EOMI ENT Exam: airway nml, nml ext.inspection Neck Exam: supple, trachea midline, full range of motion, normal alignment, normal inspection Respiratory/Chest Exam: normal breath sounds, No chest tenderness, No respi ratory distress, No ecchymosis, No crepitus Cardiovascular Exam: normal heart sounds, regular rate/rhythm Gastrointestinal Exam: soft, normal bowel sounds, No tenderness Rectal Exam: not done Back Exam: normal inspection, normal range of motion, No CVA tenderness, No vertebral tenderness Extremity Exam: bony point tenderness (Left shoulder and left upper humerus), pain with movement (Attempted to move left upper extremity but pain in the left shoulder and left upper, caudal humerus), tenderness, other (Left shoulder decreased range of motion) Neurologic Exam: alert, oriented x 3, cooperative, 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 The wound was clean) Irrigated: Yes Hibiclens Prep: Yes Wound Repaired With: sutures Suture Size/Type: 4-0, ethilon Number of Sutures: 4 Layer Closure?: No Sterile Dressing Applied?: Yes Progress: 01/12/24 23:13 After approximating the laceration site, the wound was cleaned after irrigation and dried. Thin layer bacitracin ointment was applied and a nonstick bandage was applied. - Course Nursing assessment & vital signs reviewed: Yes Ordered Tests: Active Orders 24 hr Category Date Time Status IV Insertion STAT Care 01/12/24 20:43 Active Sling Application STAT Care 01/12/24 21:17 Active CERVICAL SPINE WO CONTRAST [CT] Stat Exams 01/12/24 19:47 Completed HEAD WITHOUT CONTRAST [CT] Stat Exams 01/12/24 19:47 Completed HUMERUS Stat Exams 01/12/24 19:48 Completed SHOULDER Stat Exams 01/12/24 19:48 Completed CBC W DIFF Stat Lab 01/12/24 20:47 Completed CMP Stat Lab 01/12/24 20:47 Completed PROTIME WITH INR Stat Lab 01/12/24 20:47 Completed Medication Summary Discontinued Medications Generic Name Dose Route Start Last Admin Trade Name Freq PRN Reason Stop Dose Admin Diphtheria/Tetanus/Acell Pertussis 0.5 ml 01/12/24 19:48 01/12/24 20:51 Tdap --Diph,Pertuss(Acell),Tet Vac/Pf 0.5 Ml Vial IM 01/12/24 19:49 0.5 ml .ONCE ONE Administration Diphtheria/Tetanus/Acell Pertussis Confirm 01/12/24 20:46 Tdap --Diph,Pertuss(Acell),Tet Vac/Pf 0.5 Ml Vial Administered 01/12/24 20:47 Dose 0.5 ml IM .STK-MED ONE Lidocaine HCl 5 ml 01/12/24 22:36 01/12/24 22:39 Lidocaine Hcl 1% 20 Ml Mdv 20 Ml Ml IJ 01/12/24 22:37 5 ml STAT ONE Administration Lidocaine HCl Confirm 01/12/24 22:37 Lidocaine Hcl 1% 20 Ml Mdv 20 Ml Ml Administered 01/12/24 22:38 Dose 5 ml .ROUTE .STK-MED ONE Lorazepam 0.5 mg 01/12/24 20:31 01/12/24 20:51 Lorazepam 2 Mg/1 Ml 2 Mg Vial IV 01/12/24 20:32 0.5 mg STAT ONE Administration Lorazepam Confirm 01/12/24 20:46 Lorazepam 2 Mg/1 Ml 2 Mg Vial Administered 01/12/24 20:47 Dose 2 mg .ROUTE .STK-MED ONE Morphine Sulfate 4 mg 01/12/24 20:32 01/12/24 20:50 Morphine Sulfate 4 Mg/Ml Injection IV 01/12/24 20:33 4 mg STAT ONE Administration Morphine Sulfate Confirm 01/12/24 20:46 Morphine Sulfate 4 Mg/Ml Injection Administered 01/12/24 20:47 Dose 4 mg .ROUTE .STK-MED ONE Morphine Sulfate 4 mg 01/12/24 22:53 01/12/24 23:06 Morphine Sulfate 4 Mg/Ml Injection IV 01/12/24 22:54 4 mg STAT ONE Administration Morphine Sulfate Confirm 01/12/24 23:04 Morphine Sulfate 4 Mg/Ml Injection Administered 01/12/24 23:05 Dose 4 mg .ROUTE .STK-MED ONE Ondansetron HCl 4 mg 01/12/24 20:32 01/12/24 20:49 Ondansetron Hcl 4 Mg/2 Ml Vial IV 01/12/24 20:33 4 mg STAT ONE Administration Ondansetron HCl Confirm 01/12/24 20:45 Ondansetron Hcl 4 Mg/2 Ml Vial Administered 01/12/24 20:46 Dose 4 mg .ROUTE .K-MED ONE Lab/Rad Data: Laboratory Result Diagrams 01/12/24 20:47 01/12/24 20:47 Laboratory Results 01/12/24 01/12/24 01/12/24 Range/Units 20:47 20:47 20:47 WBC 8.2 (4.0-10.5) x10^3/uL RBC 4.89 (4.1-5.4) x10^6/uL Hgb 14.1 (12.0-16.0) g/dL Hct 42.1 (35-47) % MCV 86.1 (78-100) fL MCH 28.8 (26-32) pg MCHC 33.5 (32-36) g/dL RDW 12.8 (11.5-14.0) % Plt Count 185 (150-450) x10^3/uL MPV 11.8 H (7.5-11.0) fL Gran % 67.6 H (36.0-66.0) % Immature Gran % (Auto) 0.4 (0.00-0.4) % Nucleat RBC Rel Count 0.0 (0.00-0.1) % Eos # (Auto) 0.44 (0-0.5) x10^3/uL Immature Gran # (Auto) 0.03 (0.00-0.03) x10^3u/L Absolute Lymphs (auto) 1.52 (1.0-4.6) x10^3/uL Absolute Monos (auto) 0.56 (0.0-1.3) x10^3/uL Absolute Nucleated RBC 0.00 (0.00-0.01) x10^3u/L Lymphocytes % 18.6 L (24.0-44.0) % Monocytes % 6.9 (0.0-12.0) % Eosinophils % 5.4 H (0.00-5.0) % Basophils % 1.1 (0.0-0.4) % Absolute Granulocytes 5.53 (1.4-6.9) x10^3/uL Basophils # 0.09 (0-0.4) x10^3/uL PT 10.0 (9.4-12.5) SECONDS INR 0.91 (0.8-3.0) Sodium 138 (135-145) mmol/L Potassium 5.0 (3.5-5.1) mmol/L Chloride 101 (98-107) mmol/L Carbon Dioxide 27 (22-30) mmol/L Anion Gap 15.5 H (5-15) MEQ/L BUN 19 H (7-17) mg/dL Creatinine 0.57 (0.52-1.04) mg/dL Estimated GFR 98.9 ML/MIN Glucose 221 H (74-106) mg/dL Calcium 10.4 H (8.4-10.2) mg/dL Total Bilirubin 0.70 (0.2-1.3) mg/dL AST 34 (14-36) U/L ALT 32 (0-35) U/L Alkaline Phosphatase 101 (38-126) U/L Serum Total Protein 7.1 (6.3-8.2) g/dL Albumin 4.1 (3.5-5.0) g/dL - Progress Progress: improved, pain not gone completely, re-examined Progress Note: 01/12/24 20:17 Medical decision making and the assignment of low to moderate complexity of this patient's medical issue today is based on review of the patient's past medical history, review of patient's medication list, review the patient drug allergy list, history present illness and physical findings on examination. The workup in this patient includes CT scan of the cervical spine and head without contrast. X-ray of the left shoulder and left humerus. Adacel injection. Will also provide the patient with pain management and suture repair of the skin laceration 01/12/24 20:33 Differential diagnosis includes intracranial abnormality, left humerus fracture, left shoulder dislocation, cervical spine injury/abnormality Patient states that she cannot have Dilaudid narcotic medication. However, she does state that she has had morphine in the past without any issues. 01/12/24 23:13 Left shoulder x-ray was interpreted by the radiologist and I reviewed the interpretation. There is a possible nondisplaced cortical fracture that is seen involving the junction of the greater tubercle and surgical neck of the left humerus. There is no other definite or obvious acute fractures. Left humerus x-ray was interpreted by the radiologist and I reviewed the impression. There is a possible nondisplaced cortical fracture that is seen involving the junction of the greater tubercle and surgical neck of the left humerus. There are no other definite or obvious acute fractures. CT scan of the head without contrast was interpreted by the radiologist and I reviewed the impression. The impression states there is no evidence of acute traumatic brain injury. 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 CT scan of the cervical spine without contrast was interpreted by the radiologist and I reviewed the impression. There are no acute fractures or subluxations present. There are osteoarthritic changes throughout the cervical spine. There are multilevel bilateral mild stenoses of the neural foramina Counseled pt/family regarding: diagnosis, rad results Medical Desision Making - Independent Historian Additional History obtained from: Family - Diagnostic Testing Diagnostic test were ordered, analyzed, and reviewed by me: Yes Radiological Interpretation: Reviewed by me, Teleradiologist Report - Risk of complications The pt has a mod risk of morbidity or mortality based on: Need for prescription drug management - Departure Departure Disposition: Home Clinical Impression: Left humeral fracture, Simple laceration of face Condition: Stable Critical Care Time: No Referrals: KYLEE WALLACE MD [Primary Care Provider] - Follow up/PCP as directed Additional Instructions: Wear the sling for comfort and stabilization. Take your medications as prescribed. Keep the laceration repair site dry until the morning of 01/14/2024. At that time you may remove the dressing and wash the site with soap and water gently. Blot dry use a hair spring cutter. May then apply thin layer of antibiotic ointment once a day and cover with a nonstick gauze. Follow-up as instructed at the [facility] orthopedic clinic at 8 AM on 01/14/2024. Suture removal in 5 to 7 days. Prescriptions: Oxycodone HCl/Acetaminophen [Percocet 5-325 mg Tablet] 1 each PO Q12H PRN PRN #6 tablet MDD 2 PRN Reason: Moderate To Severe Pain
[2024-01-12 19:58] VITALS: TEMP 97.2
[2024-01-12] MEDS ORDERED: Zofran 4 MG/2 ML VIAL ONE (20:45)
[2024-01-12] MEDS ORDERED: Ativan 2 MG/1 ML VIAL ONE (20:46)
[2024-01-12] MEDS ORDERED: MORPHINE SULFATE 4 MG INJ ONE ×2 (20:46→23:04)
[2024-01-12] MEDS ORDERED: Adacel Vial IM ONE (20:46)
[2024-01-12 20:49] LABS: Absolute Neutrophil Ct (ANC) 5.53 x10^3/uL (1.4-6.9); BASOPHIL % 1.1 % (0.0-0.4); Basophil (Absolute #) 0.09 x10^3/uL (0-0.4); Eosinophil % 5.4 % (0.00-5.0); Eosinophil (Absolute #) 0.44 x10^3/uL (0-0.5); Hematocrit 42.1 % (35-47); Hemoglobin 14.1 g/dL (12.0-16.0); IMMATURE GRAN # 0.03 x10^3u/L (0.00-0.03); IMMATURE GRAN % 0.4 % (0.00-0.4); Lymphocyte (Absolute #) 1.52 x10^3/uL (1.0-4.6); Lymphocytes % 18.6 % (24.0-44.0); Mean Cell Volume 86.1 fL (78-100); Mean Corpuscular Hemoglobin 28.8 pg (26-32); Mean Corpuscular Hgb Concent. 33.5 g/dL (32-36); Mean Platelet Volume 11.8 fL (7.5-11.0); Monocyte (Absolute #) 0.56 x10^3/uL (0.0-1.3); Monocytes % 6.9 % (0.0-12.0); Neutrophil % 67.6 % (36.0-66.0); Platelet Count 185 x10^3/uL (150-450); Red Blood Count 4.89 x10^6/uL (4.1-5.4); Red Cell Distribution Width 12.8 % (11.5-14.0); White Blood Count 8.2 x10^3/uL (4.0-10.5)
[2024-01-12] MEDS: Zofran 4 MG/2 ML VIAL IV ONE (20:49)
[2024-01-12] MEDS: MORPHINE SULFATE 4 MG INJ IV ONE ×2 (20:50→23:06)
[2024-01-12] MEDS: Adacel Vial IM ONE (20:51)
[2024-01-12] MEDS: Ativan 2 MG/1 ML VIAL IV ONE (20:51)
[2024-01-12 21:06] LABS: ALBUMIN 4.1 g/dL (3.5-5.0); ANION GAP 15.5 MEQ/L (5-15); BILIRUBIN,TOTAL 0.7 mg/dL (0.2-1.3); Calcium 10.4 mg/dL (8.4-10.2); Creatinine 1 0.57 mg/dL (0.52-1.04); EST GLOMERULAR FILTRATION RATE 98.9 ML/MIN; INR 0.91 (0.8-3.0); Total Protein 7.1 g/dL (6.3-8.2)
--- NOTE | 2024-01-12 22:22 | XRAY ---
CLINICAL HISTORY: Fall injury COMPARISON: None. TECHNIQUE: Xray of the left shoulder joint AP/internal and external rotations view. FINDINGS: A possible nondisplaced cortical break/fracture is seen involving the junction of the greater tubercle and surgical neck of the left humerus Reduced bone mineralization. No other definite/ obvious acute fracture is identified. mild osteoarthritis changes are seen involving the IMPRESSION: 1. A possible nondisplaced cortical break/fracture is seen involving the junction of the greater tubercle and surgical neck of the left humerus 2. Reduced bone mineralization. 3. No other definite/ obvious acute fracture is identified. 4. Advised clinical correlation along with follow-up or CT 3D left shoulder for further evaluation if clinically desired. DISCLAIMER:A subtle bone abnormality or fracture may not be readily apparent on x-rays, thus clinical correlation and further imaging including follow-up CT, MRI, or follow-up x-rays are advised as needed. Electronically Signed by: Lennox Allison MD. (01/12/2024 22:18:36 EDT)
--- NOTE | 2024-01-12 22:24 | XRAY ---
CLINICAL HISTORY: Fall injury COMPARISON: None TECHNIQUE: An axial non-contrast CT scan of the brain was performed from the skull base to the high parietal region. One of the following dose reduction techniques was utilized for this exam: Automated exposure control, adjustment of the mA and/or kV according to patient size, and use of iterative reconstruction. CTDI: 77.08 mGy. DLP: 1427.38 mGy*cm. FINDINGS: There are a few ill-defined hypodense areas noted in the subcortical white matter and deep periventricular white matter bilaterally, suggestive of microvascular ischemic changes. The ventricular system, cortical sulci, and basal cisterns are prominent consistent with senile changes. A zone of encephalomalacia was noted in the left cerebral hemisphere, probably due to a prior cerebrovascular event. A liner hypodensity with fluid-like attenuation was noted in the posterior limb of the right internal capsule and left thalamus consistent with prior chronic lacunar infarcts. The rest of the brain parenchyma shows a normal appearance. Drummond-white matter differentiation is maintained. No midline shifts or deformity. No intracerebral or extra axial hematoma. Normal CT appearance of the posterior fossa structures namely the right cerebellar hemisphere, brainstem, and cerebellar peduncles. The IACs are unremarkable. The cerebello-pontine angles are clear. The pituitary gland, the pineal gland, and the optic chiasm are unremarkable. The osseous structures in the skull base are unremarkable. No definite calvarium fractures. Hyperostosis frontalis interna was noted. 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 The scanned paranasal sinuses are clear. IMPRESSION: 1. No evidence of traumatic brain injury or fracture. 2. A zone of encephalomalacia was noted in the left cerebral hemisphere, probably due to a prior cerebrovascular event. 3. A liner hypodensity with fluid-like attenuation was noted in the posterior limb of the right internal capsule and left thalamus consistent with prior chronic lacunar infarcts. 4. The above-mentioned findings are suggestive of microvascular ischemic changes and senile changes. Electronically Signed by: Lennox Allison MD. (01/12/2024 22:19:19 EDT)
[2024-01-12] MEDS ORDERED: XYLOCAINE 1% HCL 20 ML MDV ONE (22:37)
--- NOTE | 2024-01-12 22:38 | XRAY ---
CLINICAL HISTORY: Fall injury COMPARISON: None. TECHNIQUE: X-ray left humerus AP and lateral views. FINDINGS: A possible nondisplaced cortical break/fracture is seen involving the junction of the greater tubercle and surgical neck of the left humerus. Reduced bone mineralization. No other definite/ obvious acute fracture is identified. No lytic or sclerotic bone lesion. Normal elbow joint space. IMPRESSION: 1. A possible nondisplaced cortical break/fracture is seen involving the junction of the greater tubercle and surgical neck of the left humerus 2. Reduced bone mineralization. 3. No other definite/ obvious acute fracture is identified. 4. Advised clinical correlation along with follow-up or CT 3D left shoulder for further evaluation if clinically desired. DISCLAIMER:A subtle bone abnormality or fracture may not be readily apparent on x-rays, thus clinical correlation and further imaging including follow up CT, MRI, or follow up x-rays are advised as needed.[facility] ER was called at 9:29 PM [employer], 01/12/2024 on [phone] and findings were verbally communicated to Fabrizio Arreguin. Electronically Signed by: Lennox Allison MD. (01/12/2024 22:33:09 EDT)
[2024-01-12] MEDS: XYLOCAINE 1% HCL 20 ML MDV IJ ONE (22:39)
--- NOTE | 2024-01-12 22:48 | XRAY ---
CLINICAL HISTORY: Fall injury COMPARISON: None. TECHNIQUE: Thin axial CT of the cervical spine was performed with sagittal and coronal reconstructions without contrast. One of the following dose reduction techniques was utilized for this exam: Automated exposure control, adjustment of the mA and/or kV according to patient size, and use of iterative reconstruction. CTDI: 23.16 mGy. DLP: 449.82 mGy*cm. FINDINGS: Limited evaluation of the lower cervical spine and upper thoracic spine due to motion artifacts. Alignment and osseous structures: Straightening of the cervical lordosis. No evidence of fracture or luxation. The vertebral bodies are normal in height and preserve normal alignment. Multilevel osteophytes, most seen in C5-6. Multilevel facet joint and uncovertebral arthropathy. Multilevel decreased height of the intervertebral discs, endplate sclerosis, and irregularities, most seen in C5-6. No lytic or sclerotic bone lesion. The craniovertebral measures are unremarkable. Multilevel bilateral mild stenosis of neural foramina. Mild asymmetric with left preponderance central canal stenosis in C5-C6. IMPRESSION: 1. No evidence of fracture or luxation. 2. 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 3. Mild asymmetric with left preponderance central canal stenosis in C5-C6. 4. Multilevel bilateral mild stenosis of neural foramina. Electronically Signed by: Lennox Allison MD. (01/12/2024 22:44:39 EDT)
[2024-01-12] MEDS ORDERED: PERCOCET TABLET 5/325MG ONE (23:17)
[2024-01-12] MEDS: PERCOCET TABLET 5/325MG PO STA (23:18)
[2024-01-12 23:32] VITALS: BP 167/102; PULSE 101; RESP 17; O2SAT 95
[2024-01-12] MEDS: BACIGUENT PACKET TP ONE (23:36)
[2024-01-12] MEDS ORDERED: BACIGUENT PACKET ONE (23:36)
== END 2024-01-12 23:43 | disposition home or self-care (01) ==
LOC: ED 19:41
DX: S42.212A Unspecified displaced fracture of surgical neck of left humerus, initial encounter for closed fracture (principal); S01.112A Laceration without foreign body of left eyelid and periocular area, initial encounter; W01.0XXA Fall on same level from slipping, tripping and stumbling without subsequent striking against object, initial encounter; E78.5 Hyperlipidemia, unspecified; I10 Essential (primary) hypertension; E11.9 Type 2 diabetes mellitus without complications; Z79.891 Long term (current) use of opiate analgesic; Z79.84 Long term (current) use of oral hypoglycemic drugs; Z79.899 Other long term (current) drug therapy; Z23 Encounter for immunization
CPT/HCPCS: 12013; 36000; 36415; 70450; 72125; 73030; 73060; 80053; 85025; 85610; 90471; 90715; 96372; 96374; 96375; 96376; 99284; J2060; J2270; J2405; A9270-GY